=== PATIENT | female | born 1955 | race Caucasian/White ===

== ENCOUNTER → 2017-03-31 | Outpatient (CLI) | payer BC ==
--- NOTE | 2017-03-31 14:53 | DIAGNOSTIC IMAGING REPORT ---
ULTRASOUND RIGHT VENOUS DOPP LOWER EXT UNILAT CLINICAL HISTORY: Right lower extremity pain and swelling COMPARISON STUDY: No previous studies for comparison. FINDINGS: No thrombus is visualized in the common femoral vein. The mid and distal superficial femoral vein was incompletely compressible. There is no color flow. The popliteal vein is incompletely compressible and there is no color flow. There is probable thrombus within the posterior tibial vein. IMPRESSION: Acute right lower extremity DVT with involvement of the superficial femoral vein, popliteal vein, posterior tibial vein. Electronically signed by: Emerson Porras M.D. 03/31/2017 2:51 PM Dictated Date/Time: 03/31/2017 2:50 PM
== END | disposition home or self-care (01) ==
LOC: C.ULTRBC 14:18
DX: M92.61 Juvenile osteochondrosis of tarsus, right ankle (principal); I82.4Z1 Acute embolism and thrombosis of unspecified deep veins of right distal lower extremity

== ENCOUNTER → 2017-11-26 | Outpatient (CLI) | payer BC ==
--- NOTE | 2017-11-26 15:22 | MAMMOGRAPHY REPORT ---
BILATERAL DIGITAL SCREENING MAMMOGRAM TOMOSYNTHESIS WITH CAD: 11/26/2017 CLINICAL HISTORY: Routine screening. Patient has no complaints. TECHNIQUE: Breast tomosynthesis in addition to standard 2D mammography was performed. Current study was also evaluated with a Computer Aided Detection (CAD) system. COMPARISON: Comparison is made to exams dated: 10/23/2016 mammogram, 10/05/2015 mammogram, 4 mammogram, 01/05/2013 mammogram, 11/29/2011 mammogram, and 08/24/2010 mammogram - [facility]. BREAST COMPOSITION: There are scattered areas of fibroglandular density in both breasts. FINDINGS: No suspicious masses, calcifications, or areas of architectural distortion are noted in ei ther breast. There has been no significant interval change compared to prior exams. IMPRESSION: ACR BI-RADS CATEGORY 1: NEGATIVE There is no mammographic evidence of malignancy. A 1 year screening mammogram is recommended. The pa tient will receive written notification of the results. Approximately 10% of breast cancers are not detected with mammography. A negative mammographic report should not delay biopsy if a clinically suggestive mass is present. Catherine Guerra M.D. ah/:11/26/2017 12:41:35 Precipitation Equipment Tender: Addie PERALES(Aleisha)(M), [facility] letter sent: Normal 1/2 BI-RADS Code: ACR BI-RADS Category 1: Negative
== END | disposition home or self-care (01) ==
LOC: C.MAMM 10:47
PROVIDERS: ATTEND Nurse Practitioner Obstetrics & Gynecology
DX: Z12.31 Encounter for screening mammogram for malignant neoplasm of breast (principal)